=== PATIENT | female | born 1990 | race American Indian/Alaskan Native ===

== ENCOUNTER 2017-01-06 23:08 | Outpatient (CLI) | payer MEDICAID ==
[2017-01-06] MEDS ORDERED: LACTATED RINGERS 0 ML ONE (23:39)
[2017-01-06] MEDS ORDERED: TYLENOL PO ONE (23:44)
== END 2017-01-07 02:47 | disposition home or self-care (01) ==
LOC: TRG 23:08
PROVIDERS: ATTEND Obstetrics & Gynecology
DX: O26.893 Other specified pregnancy related conditions, third trimester (principal); M54.9 Dorsalgia, unspecified; M79.605 Pain in left leg; M79.604 Pain in right leg; Z3A.36 36 weeks gestation of pregnancy
CPT/HCPCS: 59025; J7120

== ENCOUNTER 2017-01-09 06:49 | Outpatient (CLI) | payer MEDICAID ==
[2017-01-09 07:09] VITALS: BP 110/62
[2017-01-09] MEDS ORDERED: LACTATED RINGERS 1,000 ML IV SCH (08:00)
[2017-01-09 09:18] LABS: Bilirubin,Urine NEG (Negative); Blood,Urine NEG (Negative); Ketones,Urine 80 mg/dL (Negative); Leukocyte Esterase,Urine NEG (Negative); Mucus,Urine 2+ /HPF; Nitrite,Urine NEG (Negative)
== END 2017-01-09 10:08 | disposition home or self-care (01) ==
LOC: TRG 06:49
PROVIDERS: ATTEND Obstetrics & Gynecology
DX: Z34.93 Encounter for supervision of normal pregnancy, unspecified, third trimester (principal); Z3A.36 36 weeks gestation of pregnancy
CPT/HCPCS: 59025; 81001; 96360

== ENCOUNTER 2017-01-11 13:43 | Outpatient (CLI) | payer MEDICAID ==
[2017-01-11 14:32] VITALS: BP 112/61
== END 2017-01-11 15:56 | disposition home or self-care (01) ==
LOC: TRG 13:43
PROVIDERS: ATTEND Obstetrics & Gynecology
DX: Z34.93 Encounter for supervision of normal pregnancy, unspecified, third trimester (principal); Z3A.37 37 weeks gestation of pregnancy
CPT/HCPCS: 59025

== ENCOUNTER 2017-01-22 00:19 | Outpatient (CLI) | payer MEDICAID ==
[2017-01-22 02:02] VITALS: BP 116/56
== END 2017-01-22 02:20 | disposition home or self-care (01) ==
LOC: TRG 00:19
PROVIDERS: ATTEND Obstetrics & Gynecology Gynecology
DX: Z34.93 Encounter for supervision of normal pregnancy, unspecified, third trimester (principal); Z3A.38 38 weeks gestation of pregnancy
CPT/HCPCS: 59025

== ENCOUNTER 2017-01-26 00:42 | Outpatient (CLI) | payer MEDICAID ==
[2017-01-26 01:15] VITALS: BP 113/67
== END 2017-01-26 03:33 | disposition home or self-care (01) ==
LOC: TRG 00:42
PROVIDERS: ATTEND Obstetrics & Gynecology
DX: O47.1 False labor at or after 37 completed weeks of gestation (principal); Z3A.39 39 weeks gestation of pregnancy
CPT/HCPCS: 59025

== ENCOUNTER 2017-01-29 00:47 | Inpatient (IN) | payer MEDICAID ==
[2017-01-29] MEDS ORDERED: MINERAL OIL PO PRN (03:40)
[2017-01-29] MEDS ORDERED: PHENERGAN PO PRN ×2 (03:40→12:56)
[2017-01-29] MEDS ORDERED: ZOFRAN IV PRN ×2 (03:40→12:56)
[2017-01-29] MEDS ORDERED: XYLOCAINE 2% INFILTRATI ONE (03:40)
[2017-01-29] MEDS ORDERED: POLYCILLIN/NS 2 GM/100 ML 2 GM/100 ML BAG IV ONE (03:40)
[2017-01-29] MEDS ORDERED: BRETHINE SUB-Q PRN (03:40)
[2017-01-29] MEDS ORDERED: ePHEDrine SULFATE IV PRN ×2 (03:40→09:15)
[2017-01-29] MEDS ORDERED: NARCAN 0.4 MG/1 ML IV PRN (03:40)
[2017-01-29] MEDS ORDERED: STADOL IV PRN (03:40)
[2017-01-29] MEDS ORDERED: SUBLIMAZE IV PRN (03:40)
[2017-01-29] MEDS ORDERED: BRETHINE IVP PRN (03:40)
--- NOTE | 2017-01-29 03:53 | History and Physical Report ---
History of Present Illness Date of examination: 01/29/17 Date of admission: 01/29/17 03:31 Chief complaint: Contractions History of present illness: Pt is a 26yo BF EDC 01/31/17; EGA 39 5/7 weeks presents to L&D complaining of contractions. Cx /V/-2 She received care at [facility] since 9 weeks, and course has been unremarkable except for an enlarged thyroid gland. records are available and GBS is Negative. 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 History: abnormal PAP smear, herpes Social history: no significant social history, single - Obstetrical History Expected Date of Delivery: 01/31/17 Actual Gestation: 39 Week(s) 5 Day(s) : 10 Medications and Allergies Allergies Allergy/AdvReac Type Severity Reaction Status Date / Time No Known Allergies Allergy Verified 02/12/14 12:08 Home Medications Medication Instructions Recorded Confirmed Last Taken Type Amoxicillin [Trimox CAP] 500 mg PO Q8H #21 capsule 02/12/14 Unknown Rx Cyclobenzaprine [Flexeril 10mg] 10 mg PO TID PRN #30 tablet 07/23/14 Unknown Rx HYDROcodone/APAP 5-325 [[place] 1 each PO Q6HR PRN #20 tablet 07/23/14 Unknown Rx 5/325] Ibuprofen [Motrin 800 MG tab] 800 mg PO Q8H PRN #20 tablet 07/23/14 Unknown Rx HYDROcodone/APAP 5-325 [[place] 1 each PO Q6HR PRN #12 tablet 10/07/14 Unknown Rx 5-325 mg TAB] Ondansetron [Zofran Odt] 4 mg PO Q6H PRN #10 tab.rapdis 10/07/14 Unknown Rx Review of Systems All systems: negative - Vital Signs Vital signs: Vital Signs Temp Resp 98.2 F 16 01/29/17 00:55 01/29/17 00:55 Temp Pulse Resp BP Pulse Ox 98.2 F 16 01/29/17 00:55 01/29/17 00:55 - Physical Exam Breasts: Positive: deferred Cardiovascular: Regular rate Lungs: Positive: Clear to auscultation Abdomen: Positive: normal appearance Genitourinary (Female): Positive: normal external genitalia Uterus: Positive: enlarged Extremities: Positive: normal - Obstetrical FHR: category 1 Uterine Contraction Monitor Mode: External Cervical Dilatation: 5 Cervical Effacement Percentage: 90 station: -2 Uterine Contraction Pattern: Irregular Uterine Contraction Intensity: Mild Results Result Diagrams: 01/29/17 03:37 All other labs normal. Assessment and Plan - Patient Problems (1) 39 weeks gestation of Onset Date: 01/29/17 Current Visit: Yes Status: Acute Plan to address problem: A: IUP @ 39 5/7 weeks in labor P: Admit to L&D for expectant vaginal delivery
[2017-01-29 03:59] LABS: Hematocrit 29.4 % (30.3-42.9); Hemoglobin 10.2 gm/dl (10.1-14.3); Mean Corpuscular HGB Conc 35 % (30-34); Mean Corpuscular Hemoglobin 35 pg (28-32); Mean Corpuscular Volume 101 fl (79-97); Platelet Count 178 K/mm3 (140-440); Red Blood Count 2.92 M/mm3 (3.65-5.03); Red Cell Distribution Width 13.5 % (13.2-15.2); White Blood Count 8.9 K/mm3 (4.5-11.0)
[2017-01-29] MEDS ORDERED: PITOCin/NS 20 UNIT/1000ML DRIP 20 UNITS/1,000 ML BAG IV SCH ×2 (04:00→13:00)
[2017-01-29] MEDS ORDERED: PITOCin/NS 30 UNIT/500ML 30 UNITS/500 ML BAG IV SCH ×2 (04:00)
[2017-01-29] MEDS: LACTATED RINGERS 1,000 ML IV SCH ×3 (05:25→09:38)
[2017-01-29] MEDS ORDERED: POLYCILLIN/NS 1 GM/50 ML 1 GM/50 ML BAG IV SCH (08:00)
[2017-01-29] MEDS ORDERED: NARCAN 2 MG/2 ML IV PRN (09:15)
--- NOTE | 2017-01-29 09:16 | Anesthesia Consultation ---
Anesthesia Consult and Med Hx Date of service: 01/29/17 - Airway Anesthetic Teeth Evaluation: Good ROM Head & Neck: Adequate Mental/Hyoid Distance: Adequate Mallampati Class: Class II Intubation Access Assessment: Probably Good - Pulmonary Exam CTA: Yes - Cardiac Exam Cardiac Exam: RRR - Pre-Operative Health Status ASA Pre-Surgery Classification: ASA2 Proposed Anesthetic Plan: Epidural, Spinal - Pulmonary Hx Asthma: Yes (childhood) COPD: No Hx Pneumonia: No - Cardiovascular System Hx Hypertension: No - Central Nervous System Hx Seizures: No Hx Psychiatric Problems: Yes - Endocrine Hx Renal Disease: No Hx End Stage Renal Disease: No Hx Hypothyroidism: No Hx Hyperthyroidism: No - Hematic Hx Anemia: No Hx Sickle Cell Disease: No - Other Systems Hx Alcohol Use: No Hx Obesity: Yes (BMI > 30) - Additional Comments Anesthesia Medical History Comments: +iup
[2017-01-29] MEDS ORDERED: fentaNYL-BUPIV 2 MCG/ML-0.125% 200 MCG/100 ML BAG EPIDURAL SCH (10:00)
--- NOTE | 2017-01-29 12:54 | Procedure Note ---
OB Delivery Note - Delivery Date of Delivery: 01/29/17 Surgeon: MARKUS CASEY Estimated blood loss: 200cc - Vaginal Delivery presentation: vertex Delivery position: OA Intrapartum events: none Delivery induction: oxytocin Delivery augmentation: rupture of membranes Delivery monitor: external FHT, external uterine Route of delivery: Delivery placenta: spontaneous Delivery cord: 3 umbilical vessels Episiotomy: none Delivery laceration: none Anesthesia: epidural - A at 1 minute: 8 at 5 minutes: 9 Gender: Female (3507gms)
[2017-01-29] MEDS ORDERED: DULCOLAX PR PRN (12:56)
[2017-01-29] MEDS ORDERED: TYLENOL PO PRN (12:56)
[2017-01-29] MEDS ORDERED: PHENERGAN PR PRN (12:56)
[2017-01-29] MEDS ORDERED: NORCO 5/325 PO PRN (12:56)
[2017-01-29] MEDS ORDERED: BENADRYL PO PRN (12:56)
[2017-01-29] MEDS ORDERED: MILK OF MAGNESIA PO PRN (12:56)
[2017-01-29] MEDS ORDERED: LANSINOH TP PRN (12:56)
[2017-01-29] MEDS ORDERED: DERMOPLAST TP PRN (12:56)
[2017-01-29] MEDS ORDERED: TUCKS PAD TP PRN (12:56)
[2017-01-29] MEDS ORDERED: SODIUM CHLORIDE FLUSH SYRINGE 10 ML IV NR (13:00)
[2017-01-29] MEDS ORDERED: SENOKOT S PO SCH (13:00)
[2017-01-29] MEDS: MOTRIN PO SCH (17:36)
[2017-01-29] MEDS: COLACE PO SCH (21:44)
[2017-01-29] MEDS: FEOSOL PO SCH (21:44)
[2017-01-30] MEDS: MOTRIN PO SCH ×4 (00:08→17:47)
[2017-01-30 04:33] LABS: Hemoglobin 8.6 gm/dl (10.1-14.3)
--- NOTE | 2017-01-30 08:33 | Progress Note ---
Subjective Date of service: 01/30/17 Interval history: 1st day after normal vaginal delivery Patient is in the bed, comfortable. Pain is well controlled with pin meds. Ambulated well. No residual neurological deficit. No anesthesia complications Objective - Constitutional Vitals: Vital Signs - 12hr 01/29/17 01/30/17 21:30 00:45 Temperature 98.5 F 98.6 F Pulse Rate [ 75 75 Left From Monitor] Respiratory 20 18 Rate Blood Pressure 116/55 118/51 [Right Arm] - Labs CBC & Chem 7: 01/30/17 03:59 Labs: Abnormal lab results 01/30/17 Range/Units 03:59 Hgb 8.6 L (10.1-14.3) gm/dl Hct 25.0 L (30.3-42.9) %
[2017-01-30] MEDS: COLACE PO SCH ×2 (12:05→22:12)
[2017-01-30] MEDS: FEOSOL PO SCH ×2 (12:05→22:12)
[2017-01-30] MEDS: PRENATAL VITAMIN PO SCH (12:06)
[2017-01-30] MEDS ORDERED: M-M-R II VACCINE SUB-Q ONE (12:56)
[2017-01-30] MEDS ORDERED: BOOSTRIX IM ONE (12:56)
--- NOTE | 2017-01-30 14:29 | Progress Note ---
Assessment and Plan - Patient Problems (1) 39 weeks gestation of Onset Date: 01/29/17 Current Visit: Yes Status: Resolved (2) (normal spontaneous vaginal delivery) Onset Date: 01/30/17 Current Visit: Yes Status: Resolved Plan to address problem: A: S/P - PPD #1 Doing well Asymptomatic anemia - stable P: May go home tomorrow. (3) Acute blood loss anemia Onset Date: 01/30/17 Current Visit: Yes Status: Acute Subjective - Subjective Date of service: 01/30/17 Principal diagnosis: s/p - PPD #1 Interval history: Pt is feeling well without complaints. Bleeding improved. Patient reports: appetite normal, voiding normally, pain well controlled, flatus , ambulating normally [place]: doing well, nursing well Objective - Vital Signs Latest vital signs: Vital Signs Temp Pulse Pulse Pulse Resp BP 01/30/17 12:02 20 01/30/17 08:41 98.2 F 68 20 118/72 01/30/17 00:45 98.6 F 75 18 118/51 01/29/17 21:30 98.5 F 75 20 116/55 01/29/17 14:45 98.1 F 78 18 119/65 Intake and Output 01/29/17 01/30/17 01/30/17 22:59 06:59 14:59 Intake Total 240 480 360 Output Total 850 Balance -610 480 360 Intake: Oral 360 Intake, Free Water 240 480 Output: Urine 850 Void 850 Other: Total, Intake Amount 240 Total, Output Amount 400 # Voids Indwelling Catheter 1 Void 1 - Exam Breasts: Present: deferred Cardiovascular: Present: Regular rate Lungs: Present: Clear to auscultation Abdomen: Present: normal appearance, soft Uterus: Present: normal, firm, fundal height below umbilicus Extremities: Present: normal - Labs Labs: Abnormal lab results 01/30/17 Range/Units 03:59 Hgb 8.6 L (10.1-14.3) gm/dl Hct 25.0 L (30.3-42.9) % Laboratory Tests 01/29/17 01/29/17 01/30/17 03:37 03:37 03:59 WBC 8.9 RBC 2.92 L Hgb 10.2 8.6 L Hct 29.4 L 25.0 L MCV 101 H MCH 35 H MCHC 35 H RDW 13.5 Plt Count 178 Blood Type A POSITIVE Antibody Screen Negative
--- NOTE | 2017-01-30 15:00 | Discharge Summary ---
Providers - Providers Date of Admission: 01/29/17 03:31 Date of discharge: 01/31/17 Attending physician: MARKUS CASEY Primary care physician: MARKUS CASEY Hospitalization Reason for admission: active labor, IUP at term Delivery: Episiotomy: none Laceration: none Other procedures: none complications: none Discharge diagnosis: IUP at term delivered [place] baby: female Hospital course: Unremarkable. Condition at discharge: Good Disposition: DISCHARGED TO HOME OR SELFCARE - Discharge Diagnoses (1) 39 weeks gestation of Status: Resolved (2) (normal spontaneous vaginal delivery) Status: Resolved (3) Acute blood loss anemia Status: Acute Plan - Discharge Medications Prescriptions: Ferrous Sulfate [Feosol 325 MG tab] 325 mg PO BID #60 tablet Ibuprofen [Motrin 600 MG tab] 600 mg PO Q6H #30 tablet Vit-Fe Fumar-FA [ Vitamin] 1 each PO QDAY #30 tablet - Provider Discharge Summary Activity: routine, no sex for 6 weeks, no heavy lifting 4 weeks, no strenuous exercise Diet: routine Instructions: routine Additional instructions: [] Smoking cessation referral if applicable(refer to patient education folder for contact #) [] Refer to [facility] Booklet Call your doctor immediately for: * Fever > 100.5 * Heavy vaginal bleeding ( >1 pad per hour) * Severe persistent headache * Shortness of breath * Reddened, hot, painful area to leg or breast * Drainage or odor from incision. * Keep incision clean and dry at all times and follow doctor's instructions regarding bathing/showering - Follow up plan Follow up: MARKUS CASEY MD [Primary Care Provider] - 6 Weeks
[2017-01-31] MEDS: MOTRIN PO SCH ×3 (00:42→12:21)
[2017-01-31] MEDS: FEOSOL PO SCH (10:42)
[2017-01-31] MEDS: COLACE PO SCH (10:42)
[2017-01-31] MEDS: PRENATAL VITAMIN PO SCH (10:42)
[2017-01-31 13:36] VITALS: BP 106/60
== END 2017-01-31 12:30 | disposition home or self-care (01) | DRG 775 ==
LOC: TRG 00:47 → LD 03:31 → OB 14:35
PROVIDERS: ADMIT Obstetrics & Gynecology; ATTEND Obstetrics & Gynecology
PROC: 10E0XZZ Delivery of Products of Conception, External Approach (ICD-10-PCS; principal; 2017-01-29)
PROC: 3E0S3CZ (ICD-10-PCS; 2017-01-29)
PROC: 3E033VJ Introduction of Other Hormone into Peripheral Vein, Percutaneous Approach (ICD-10-PCS; 2017-01-29)
PROC: 10907ZC Drainage of Amniotic Fluid, Therapeutic from Products of Conception, Via Natural or Artificial Opening (ICD-10-PCS; 2017-01-29)
PROC: 00HU33Z Insertion of Infusion Device into Spinal Canal, Percutaneous Approach (ICD-10-PCS; 2017-01-29)
DX: O99.52 Diseases of the respiratory system complicating childbirth (principal); O99.214 Obesity complicating childbirth; O99.02 Anemia complicating childbirth; E66.9 Obesity, unspecified; D62 Acute posthemorrhagic anemia; J45.909 Unspecified asthma, uncomplicated; Z3A.39 39 weeks gestation of pregnancy; Z68.32 Body mass index [BMI] 32.0-32.9, adult; Z37.0 Single live birth
CPT/HCPCS: 36415; 85014; 85018; 85027; 86850; 86900; 86901; 99211; G0463; J2590; J7120

== ENCOUNTER 2017-09-29 22:18 | Emergency (ER) | payer MEDICAID, OTHER ==
[2017-09-29 23:00] VITALS: BP 131/99
[2017-09-29 23:22] LABS: Basophils % (Auto) 1.8 % (0.0-1.8); Eosinophils % (Auto) 6.6 % (0.0-4.3); Hematocrit 38.8 % (30.3-42.9); Hemoglobin 13.3 gm/dl (10.1-14.3); Mean Corpuscular HGB Conc 34 % (30-34); Mean Corpuscular Hemoglobin 35 pg (28-32); Mean Corpuscular Volume 101 fl (79-97); Platelet Count 237 K/mm3 (140-440); Red Blood Count 3.82 M/mm3 (3.65-5.03); Red Cell Distribution Width 12.8 % (13.2-15.2)
[2017-09-29 23:45] LABS: Alanine Aminotransferase 16 units/L (7-56); Albumin 4.4 g/dL (3.9-5); Albumin/Globulin Ratio 1.4 %; Alkaline Phosphatase 57 units/L (35-129); Anion Gap 17 mmol/L; BUN/Creatinine Ratio 14; Blood Urea Nitrogen 10 mg/dL (7-17); Calcium 9.2 mg/dL (8.4-10.2); Carbon Dioxide 25 mmol/L (22-30); Chloride 100.7 mmol/L (98-107); Glucose 88 mg/dL (65-100); Lipase 36 units/L (13-60); Sodium 139 mmol/L (137-145); Total Protein 7.5 g/dL (6.3-8.2)
--- NOTE | 2017-09-29 23:49 | Emergency Department Report ---
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 This is all along with missing her last menstrual cycle. She says the most recent period that she had was 08/30/17 and she was due a few days ago. She denies any current vaginal bleeding. She says that she does have a previous history of chlamydia back in 2007 and had trichomoniasis last year. She is not taking anything for her symptoms prior to presentation. She denies any fever, nausea, vomiting, back pain or any genital lesions. ED Past Medical Hx - Past Medical History Hx Hypertension: No Hx Congestive Heart Failure: No Hx Diabetes: No Hx Deep Vein Thrombosis: No Hx Renal Disease: No Hx Sickle Cell Disease: No Hx Seizures: No Hx Asthma: Yes (childhood) Hx COPD: No Hx HIV: No - Surgical History Additional Surgical History: x2 - Social History Smoking Status: Current Every Day Smoker Substance Use Type: None - Medications Home Medications: Home Medications Medication Instructions Recorded Confirmed Last Taken Type Amoxicillin [Trimox CAP] 500 mg PO Q8H #21 capsule 02/12/14 01/30/17 Unknown Rx Cyclobenzaprine [Flexeril 10mg] 10 mg PO TID PRN #30 tablet 07/23/14 01/30/17 Unknown Rx HYDROcodone/APAP 5-325 [[place] 1 each PO Q6HR PRN #20 tablet 07/23/14 01/30/17 Unknown Rx 5/325] Ibuprofen [Motrin 800 MG tab] 800 mg PO Q8H PRN #20 tablet 07/23/14 01/30/17 Unknown Rx HYDROcodone/APAP 5-325 [[place] 1 each PO Q6HR PRN #12 tablet 10/07/14 01/30/17 Unknown Rx 5-325 mg TAB] Ondansetron [Zofran Odt] 4 mg PO Q6H PRN #10 tab.rapdis 10/07/14 01/30/17 Unknown Rx Ferrous Sulfate [Feosol 325 MG tab] 325 mg PO BID #60 tablet 01/30/17 Unknown Rx Ibuprofen [Motrin 600 MG tab] 600 mg PO Q6H #30 tablet 01/30/17 Unknown Rx Vit-Fe Fumar-FA [ 1 each PO QDAY #30 tablet 01/30/17 Unknown Rx Vitamin] ED Review of Systems ROS: Stated complaint: VAG DISCHARGE Other details as noted in HPI Comment: All other systems reviewed and negative Constitutional: denies: chills, fever Eyes: denies: eye pain, eye discharge, vision change ENT: denies: ear pain, throat pain Respiratory: denies: cough, shortness of breath, wheezing Cardiovascular: denies: chest pain, palpitations Gastrointestinal: denies: nausea, vomiting Genitourinary: dysuria, discharge Musculoskeletal: denies: back pain, joint swelling, arthralgia Skin: denies: rash, lesions Neurological: denies: headache, weakness, paresthesias Physical Exam - Physical Exam Vital Signs: Vital Signs 09/29/17 22:56 Temperature 99.1 F Pulse Rate 74 Respiratory 18 Rate Blood Pressure 131/99 O2 Sat by Pulse 100 Oximetry Physical Exam: GENERAL: The patient is well-developed well-nourished. HENT: Normocephalic. Atraumatic. Patient has moist mucous membranes. EYES: Extraocular motions are intact. Pupils equal reactive to light bilaterally. NECK: Supple. Trachea is midline. CHEST/LUNGS: Clear to auscultation. There is no respiratory distress noted. HEART/CARDIOVASCULAR: Regular. There is no tachycardia. There is no murmur. ABDOMEN: Abdomen is soft, nontender. Patient has normal bowel sounds. There is no abdominal distention. SKIN: Skin is warm and dry. NEURO: The patient is awake, alert, and oriented. The patient is cooperative. The patient has no focal neurologic deficits. The patient has normal speech. MUSCULOSKELETAL: There is no tenderness or deformity. There is no limitation range of motion. There is no evidence of acute injury. : There is no vaginal or labial lesion seen. There is no significant discharge seen in the vaginal vault. ED Course Vital Signs 09/29/17 22:56 Temperature 99.1 F Pulse Rate 74 Respiratory 18 Rate Blood Pressure 131/99 O2 Sat by Pulse 100 Oximetry ED Medical Decision Making - Lab Data Result diagrams: 09/29/17 23:05 09/29/17 23:05 - Medical Decision Making Patient's physical exam is mostly unremarkable. Labs are mostly unremarkable as well. Patient is not . No signs of a urinary tract infection. Negative for bacterial vaginosis and trichomoniasis. The gonorrhea and chlamydia has been sent and results should be back in 2 or 3 days. All this was discussed with the patient and she understands and agrees with the plan of outpatient follow-up and that she will be notified if the gonorrhea and chlamydia are positive. - Differential Diagnosis , UTI, STD Critical Care Time: No Critical care attestation.: If time is entered above; I have spent that time in minutes in the direct care of this critically ill patient, excluding procedure time. ED Disposition Clinical Impression: Vaginal discharge, Abnormal menstrual cycle, Dysuria Disposition: TO HOME OR SELFCARE Is pt being admited?: No Condition: Stable Instructions: Dysuria (ED), Abdominal Pain (ED) Additional Instructions: Please follow up with a primary care physician in the next few days. Return to the emergency Department with any worsening of your symptoms or any acute distress. Referrals: GABBY CASEY [Primary Care Provider] - 3-5 Days [facility] [Provider Group] - 3-5 Days [facility] [Provider Group] - 3-5 Days Time of Disposition: 02:02
[2017-09-30 00:03] LABS: Bilirubin,Urine NEG (Negative); Blood,Urine NEG (Negative); Ketones,Urine NEG (Negative); Leukocyte Esterase,Urine TR (Negative); Mucus,Urine FEW /HPF; Nitrite,Urine NEG (Negative); Protein,Urine <15 mg/dL mg/dL (Negative)
== END 2017-09-30 03:12 | disposition home or self-care (01) ==
LOC: ED 22:18
DX: N92.6 Irregular menstruation, unspecified (principal); N89.8 Other specified noninflammatory disorders of vagina; R30.0 Dysuria; F17.200 Nicotine dependence, unspecified, uncomplicated
CPT/HCPCS: 36415; 80053; 81001; 83690; 84702; 85025; 87210; 87591